=== PATIENT | female | born 1990 | race Caucasian/White ===

== ENCOUNTER 2018-01-03 10:06 | Emergency (ER) | payer OTHER ==
[~2018-01-03] VITALS: Ht 160 cm; Wt 65.8 kg
[~2018-01-03 10:06] MED LIST: BACTRIM DS TAB1 EACH; CELEXA20 MG PO; CIPRO500 MG PO; CLEOCIN HCL300 MG PO; DOXYCYCLINE 10100 MG PO; FLAGYL500 MG PO; HYDROCODONE-AP1 EAC6 PO; HYDROCODONE-APA1 TA1 PO; IBUPROFEN 800800 M1 PO; KEFLEX500 M1 PO; NORCO 5-325 TA1 EACH PO; TRAMADOL 50 MG50 MG PO; ZOFRAN ODT4 MG PO
[2018-01-03 10:11] VITALS: BP 100/56
[2018-01-03] MEDS ORDERED: NOHOMEMEDICATIONS (10:18)
[2018-01-03] MEDS ORDERED: BACTRIM DS TAB1 EACH PO (10:26)
[2018-01-03] MEDS ORDERED: ACETAMINOPHEN-1 EAC1 PO (10:26)
[2018-01-03] MEDS ORDERED: KEFLEX500 M1 PO (10:37)
[2018-01-04] MEDS ORDERED: HYDROCODONE-AP1 EAC6 PO (21:45)
== END 2018-01-03 10:40 | disposition home or self-care (01) ==
LOC: M.ERS 10:06
DX: L03.115 Cellulitis of right lower limb (principal); Z86.14 Personal history of Methicillin resistant Staphylococcus aureus infection

== ENCOUNTER 2018-01-04 20:37 | Emergency (ER) | payer OTHER ==
[~2018-01-04] VITALS: Ht 160 cm; Wt 63.5 kg
[~2018-01-04 20:37] MED LIST changes: +ACETAMINOPHEN-1 EAC1 PO; +BACTRIM DS TAB1 EACH PO; +NOHOMEMEDICATIONS
[2018-01-04] MEDS ORDERED: HYDROCODONE-AP1 EAC6 PO (21:45)
[2018-01-04 21:56] VITALS: BP 124/68
== END 2018-01-04 21:56 | disposition home or self-care (01) ==
LOC: M.ERS 20:37
DX: L03.115 Cellulitis of right lower limb (principal); F10.20 Alcohol dependence, uncomplicated